=== PATIENT | female | born 1990 | race American Indian/Alaskan Native ===

== ENCOUNTER 2016-11-30 00:08 | Emergency (ER) | payer OTHER ==
[2016-11-30 01:15] LABS: Basophils % (Auto) 1.3 % (0.0-1.8); Eosinophils % (Auto) 8.6 % (0.0-4.3); Hematocrit 33.2 % (30.3-42.9); Mean Corpuscular HGB Conc 33 % (30-34); Mean Corpuscular Hemoglobin 29 pg (28-32); Mean Corpuscular Volume 87 fl (79-97); Platelet Count 289 K/mm3 (140-440); Red Blood Count 3.83 M/mm3 (3.65-5.03); Red Cell Distribution Width 16.3 % (13.2-15.2); White Blood Count 7.6 K/mm3 (4.5-11.0)
[2016-11-30 01:25] LABS: Alanine Aminotransferase 17 units/L (7-56); Albumin 4.1 g/dL (3.9-5); Albumin/Globulin Ratio 1.1 %; Alkaline Phosphatase 76 units/L (35-129); Blood Urea Nitrogen 6 mg/dL (7-17); Calcium 9.3 mg/dL (8.4-10.2); Carbon Dioxide 23 mmol/L (22-30); Glucose 126 mg/dL (65-100); Lipase 42 units/L (13-60); Total Protein 7.7 g/dL (6.3-8.2)
[2016-11-30 01:48] LABS: Bilirubin,Urine NEG (Negative); Blood,Urine NEG (Negative); Ketones,Urine NEG (Negative); Leukocyte Esterase,Urine LG (Negative); Mucus,Urine 1+ /HPF; Nitrite,Urine NEG (Negative); Protein,Urine <15 mg/dL mg/dL (Negative); Urobilinogen,Urine < 2.0 mg/dL (<2.0)
[2016-11-30 02:30] LABS: Anion Gap 22 mmol/L; Chloride 101.7 mmol/L (98-107); Potassium 3.7 mmol/L (3.6-5.0); Sodium 143 mmol/L (137-145)
[2016-11-30] MEDS ORDERED: MACROBID PO ONE (02:38)
[2016-11-30] MEDS ORDERED: DELTASONE PO ONE (02:45)
[2016-11-30] MEDS ORDERED: DUONEB *Not for PRN Use IH ONE (02:45)
--- NOTE | 2016-11-30 03:06 | Emergency Department Report ---
HPI - General Chief Complaint: Abdominal Pain Time Seen by Provider: 11/30/16 02:17 - HPI HPI: This is a 26-year-old Afro-[place] female presents to the emergency department with a few different complaints. The patient says that she has been having a 2 to three-day history of some wheezing, shortness of breath and dry cough that she believes is an exacerbation of her asthma. She has been out of her inhaler and does not have a nebulizer. She denies any fever, nausea, vomiting or diaphoresis. Secondarily, the patient says that her vagina swollen. She thinks that it may be due to some new laundry detergent. She denies any dysuria , vaginal discharge, vaginal bleeding. Lastly, the patient complains of some mild lower abdominal discomfort. She does not feel that it is in the pelvic region. She has a past medical history of asthma. She does not have a primary care doctor. She denies tobacco abuse. She has not taken anything for symptoms prior to presentation. No recent travel or sick contacts at home. ED Past Medical Hx - Past Medical History Previous Medical History?: Yes Hx Asthma: Yes - Surgical History Past Surgical History?: No - Social History Smoking Status: Never Smoker Substance Use Type: None - Medications Home Medications: Home Medications Medication Instructions Recorded Confirmed Last Taken Type ALBUTEROL Inhaler [ProAir HFA 2 puff IH QID PRN #1 inhalation 11/30/16 Unknown Rx Inhaler] Nitrofurantoin [place]/M-Cryst 100 mg PO Q12HR #14 capsule 11/30/16 Unknown Rx [Macrobid CAP] Nystatin Cream [Mycostatin Cream] 1 applic TP BID #1 tube 11/30/16 Unknown Rx predniSONE [Deltasone] 20 mg PO BID #8 tab 11/30/16 Unknown Rx ED Review of Systems ROS: Stated complaint: CHRIS, CHEST PAIN, TIGHTNESS Other details as noted in HPI Comment: All other systems reviewed and negative Constitutional: denies: chills, fever Eyes: denies: eye pain, eye discharge, vision change ENT: denies: ear pain, throat pain Respiratory: cough, shortness of breath, wheezing Cardiovascular: denies: palpitations, syncope Gastrointestinal: abdominal pain. denies: nausea, diarrhea Genitourinary: denies: urgency, dysuria, discharge Musculoskeletal: denies: back pain, arthralgia Skin: denies: change in color, pruritus Neurological: denies: headache, weakness, paresthesias Physical Exam - Physical Exam Vital Signs: Vital Signs 11/30/16 11/30/16 00:20 02:05 Temperature 97.8 F 97 F L Pulse Rate 73 69 Respiratory 18 18 Rate Blood Pressure 113/70 Blood Pressure 113/70 108/59 [Right] O2 Sat by Pulse 100 97 Oximetry Physical Exam: GENERAL: The patient is well-developed well-nourished. HEENT: Normocephalic. Atraumatic. Extraocular motions are intact. Patient has moist mucous membranes. Pupils equal reactive to light bilaterally. NECK: Supple. Trachea is midline. CHEST/LUNGS: Mild wheezing throughout the chest. No cough heard during examination. No tachypnea or accessory muscle use. There is no respiratory distress noted. HEART/CARDIOVASCULAR: Regular. There is no tachycardia. There is no gallop rub or murmur. ABDOMEN: Abdomen is soft. Mild lower abdominal tenderness to palpation. No guarding or rebound tenderness. Patient has normal bowel sounds. There is no abdominal distention. SKIN: Skin is warm and dry. NEURO: The patient is awake, alert, and oriented. The patient is cooperative. The patient has no focal neurologic deficits. The patient has normal speech. MUSCULOSKELETAL: There is no tenderness or deformity. There is no limitation range of motion. There is no evidence of acute injury. : The bilateral medial labia has some erythema and thickening appears consistent with a candidal skin infection. ED Course Vital Signs 11/30/16 11/30/16 00:20 02:05 Temperature 97.8 F 97 F L Pulse Rate 73 69 Respiratory 18 18 Rate Blood Pressure 113/70 Blood Pressure 113/70 108/59 [Right] O2 Sat by Pulse 100 97 Oximetry ED Medical Decision Making - Lab Data Result diagrams: 11/30/16 00:36 11/30/16 00:36 - EKG Data -: EKG Interpreted by Me EKG shows normal: sinus rhythm, axis, intervals, QRS complexes (Q waves to the septal leads), ST-T waves Rate: normal - EKG Data When compared to previous EKG there are: previous EKG unavailable Interpretation: other (sinus rhythm, Q waves to the septal leads, no ST elevation CA) - Radiology Data Radiology results: image reviewed interpreted by me: Chest x-ray did not show any acute process. Heart is normal shape and size. No effusions. No pneumothorax. No signs of pneumonia seen. Abdominal x-ray shows a increased amount of stool throughout the colon but no signs of obstruction. - Medical Decision Making 26-year-old female presents with some asthma-like symptoms, some irritation to the vagina, and some lower abdominal discomfort. Irritation of the vagina appears consistent with a candidal skin infection. Patient has some mild bronchospasm. Given steroids and a breathing treatment upon reevaluation she is feeling much better. Chest x-ray does not show any acute process. Rest of her labs are mostly unremarkable except for a mild urinary tract infection. No leukocytosis, electrolyte abnormalities, renal insufficiency or glucose abnormalities. She has normal belly labs. Abdominal x-ray shows a large amount of stool but otherwise no significant acute process. Vital signs stable throughout her ED course. Patient was given a dose of Macrobid. She'll go home with a prescription for steroids, nystatin cream, an inhaler and Macrobid. She already has a primary care doctor for follow-up. She will return to the ER with any worsening of her symptoms or any acute distress. - Differential Diagnosis asthma, pneumonia, cellulitis, Hannah Critical Care Time: No Critical care attestation.: If time is entered above; I have spent that time in minutes in the direct care of this critically ill patient, excluding procedure time. ED Disposition Clinical Impression: Vaginal irritation, Hannah infection of genital region, Bronchospasm, Increased stool volume Abdominal pain Qualifiers: Abdominal location: unspecified location Qualified Code(s): R10.9 - Unspecified abdominal pain Disposition: - TO HOME OR SELFCARE Is pt being admited?: No Condition: Stable Instructions: Vulvovaginal Candidiasis (ED), Abdominal Pain (ED), Bronchospasm (ED) Additional Instructions: Please follow-up with your primary care physician in the next few days. Return to the emergency department with any worsening of your symptoms or any acute distress. Prescriptions: ALBUTEROL Inhaler [ProAir HFA Inhaler] 2 puff IH QID PRN #1 inhalation PRN Reason: Shortness Of Breath Nystatin Cream [Mycostatin Cream] 1 applic TP BID #1 tube predniSONE [Deltasone] 20 mg PO BID #8 tab Referrals: PRIMARY CARE, [Primary Care Provider] - 3-5 Days Time of Disposition: 04:53
[2016-11-30 05:47] VITALS: BP 127/82
--- NOTE | 2016-11-30 09:15 | XRay Report ---
ABDOMINAL SERIES THREE VIEWS: 11/30/16 00:08:00 CLINICAL: Abdominal pain. FINDINGS: Supine upright views demonstrate a normal bowel gas pattern with a large volume of stool throughout the colon. No distended bowel and no air-fluid levels. No pneumoperitoneum. No mass or suspicious calcifications.The bones and soft tissues are normal. IMPRESSION: Negative abdomen with abundant stool.
== END 2016-11-30 05:00 | disposition home or self-care (01) ==
LOC: ED 00:08
DX: J98.01 Acute bronchospasm (principal); N89.8 Other specified noninflammatory disorders of vagina; B37.49 Other urogenital candidiasis; J45.909 Unspecified asthma, uncomplicated; R10.30 Lower abdominal pain, unspecified
CPT/HCPCS: 36415; 74022; 80053; 81001; 81025; 83690; 85025; 93005; 93010; 94640; 99284; J7512

== ENCOUNTER 2017-04-07 17:21 | Emergency (ER) | payer SELFPAY | END 2017-04-07 19:45 | disposition left against medical advice (07) | LOC: ED 17:21 | DX: R53.83 Other fatigue (principal); Z53.21 Procedure and treatment not carried out due to patient leaving prior to being seen by health care provider ==